=== PATIENT | male | born 1955 | race Caucasian/White ===

== ENCOUNTER 2016-11-16 05:54 | Day surgery (SDC) | payer OTHER ==
--- NOTE | 2016-11-12 15:24 | RAD ---
EXAM DESCRIPTION: XR CHEST 2 VIEWS CLINICAL HISTORY: Pre-op abdominal surgery COMPARISON: None Available. TECHNIQUE: PA/lateral FINDINGS: There is no cardiac or pulmonary abnormality. The lungs are clear. There is no effusion. IMPRESSION: No acute findings on today's study. Electronically signed by: Roc Humphries MD 11/12/2016 15:22
[2016-11-16] MEDS ORDERED: ceFAZolin SODIUM 1 GM VIAL ONE (06:42)
[2016-11-16] MEDS ORDERED: SODIUM CHL 0.9% 100ML MINI-BAG 100 ML IVPB ONE (06:43)
[2016-11-16] MEDS ORDERED: HEPARIN SODIUM 100 U/ML 5 ML SYG IV ONE (07:57)
[2016-11-16] MEDS ORDERED: SODIUM CHLORIDE 0.9% 50 ML VIAL ONE (07:57)
[2016-11-16] MEDS ORDERED: LIDOCAINE 1% 50 ML VIAL INJ ONE (07:57)
[2016-11-16] MEDS ORDERED: SODIUM BICARBONATE VIAL 50 MEQ/50 ML VIAL ONE (07:57)
[2016-11-16] MEDS ORDERED: MIDAZOLAM INJ 5 MG/5 ML VIAL ONE (09:00)
[2016-11-16] MEDS ORDERED: fentaNYL CITRATE INJ 50 MCG/ML AMP ONE (09:00)
--- NOTE | 2016-11-16 10:42 | RAD ---
EXAM DESCRIPTION: XR CHEST 1 VIEW CLINICAL HISTORY: 61 y/o ,M, port placement COMPARISON: November 12 IMPRESSION: Mild cardiomegaly without failure. New infusion port on the right with catheter tip in the lower SVC. No pneumothorax or large effusion. No complicating process noted. Electronically signed by: Alexandre Joseph MD 11/16/2016 10:40
[2016-11-16 11:11] VITALS: BP 116/80; TEMP 97.4; O2SAT 93
== END 2016-11-16 11:00 | disposition home or self-care (01) ==
LOC: EDBD → AMB 05:54 → MERGE 05:54 → AMB 11:00
PROVIDERS: ATTEND Surgery
DX: C10.9 Malignant neoplasm of oropharynx, unspecified (principal); E11.9 Type 2 diabetes mellitus without complications; R00.1 Bradycardia, unspecified; R94.31 Abnormal electrocardiogram [ECG] [EKG]; Z79.899 Other long term (current) drug therapy
CPT/HCPCS: 00532; 36416; 36561; 71010; 71020; 76000; 80048; 81001; 82948; 85025; 93005; A4216; C1788; J0690; J1642; J2250; J3010; J7050

== ENCOUNTER → 2017-12-29 | Outpatient (CLI) | payer BC | LOC: GMAB 11:19 | PROVIDERS: ATTEND Family Medicine | DX: Z00.00 Encounter for general adult medical examination without abnormal findings (principal) ==

== ENCOUNTER → 2018-12-28 | Outpatient (CLI) | payer BC | LOC: GMAE 10:49 | PROVIDERS: ATTEND Family Medicine | DX: Z00.00 Encounter for general adult medical examination without abnormal findings (principal) ==

== ENCOUNTER 2019-12-24 17:41 | Observation (INO) | payer BC ==
--- NOTE | 2019-12-24 18:20 | RAD ---
EXAM DESCRIPTION: Chest,1 View CLINICAL HISTORY: 64 years Male sob COMPARISON: 12/20/2019 FINDINGS: The cardiomediastinal silhouette appears unremarkable. No consolidating infiltrates or pleural effusions. No pneumothorax. Atelectasis in the lung bases IMPRESSION: No acute abnormality is identified. Electronically signed by: Shari Teixeira MD 12/24/2019 6:18 PM CDT
[2019-12-24] MEDS ORDERED: ASPIRIN TABLET 325 MG TAB PO ONE (19:02)
--- NOTE | 2019-12-24 21:01 | ED.PDOC ---
History of Present Illness - General Chief Complaint: Respiratory Problem Stated Complaint: SOB and hoarseness Time Seen by Provider: 12/24/19 17:59 - History of Present Illness Initial Comments: c/o having sob and desaturation at home , gave breathing treatment no improvement , currently on Augmentin for pneumonia diagnosed 1 week back ,no chest pain or wheezes or fever or chills Allergies/Adverse Reactions: Allergies NO KNOWN ALLERGY Allergy (Verified 12/24/19 18:18) Home Medications: Ambulatory Orders Acetamin W/Cod #3 Tab [Tylenol w/CODEINE #3] 1 ea PO Q4-6H PRN #20 tab 12/17/14 Amoxicillin & Pot Clavulanate [Augmentin Tab] 875 mg PO BID #20 tab 12/17/14 Ondansetron HCl [Zofran] 8 mg PO Q4HR PRN 12/24/19 Albuterol Sulfate Nebs [Proventil Nebs] 2.5 mg INH Q4HR PRN #1 inh 12/25/19 Lisinopril [Prinivil] 10 mg PO DAILY #30 tab 12/25/19 Review of Systems - Review of Systems Constitutional: States: no symptoms reported EENTM: States: no symptoms reported Cardiology: States: no symptoms reported Gastrointestinal/Abdominal: States: no symptoms reported Genitourinary: States: no symptoms reported Musculoskeletal: States: no symptoms reported Skin: States: no symptoms reported Neurological: States: no symptoms reported Endocrine: States: no symptoms reported Hematologic/Lymphatic: States: no symptoms reported Past Medical History (General) - Patient Medical History Hx Seizures: No Hx Stroke: No Hx Dementia: No Hx Asthma: No Hx of COPD: No Hx Cardiac Disorders: No Hx Congestive Heart Failure: No Hx Pacemaker: No Hx Hypertension: No Hx Thyroid Disease: No Hx Diabetes: No Hx Gastroesophageal Reflux: No Hx Renal Disease: No Hx Cancer: Yes - tongue and adnoids Hx of HIV: No Hx Hepatitis C: No Hx MRSA: No - Vaccination History Hx Tetanus, Diphtheria Vaccination: - unknown Hx Influenza Vaccination: No Hx Pneumococcal Vaccination: No - Social History Hx Tobacco Use: No Hx Alcohol Use: No Hx Substance Use: No Hx Substance Use Treatment: No Hx Depression: No - Female History Patient is a Female of Child Bearing Age (10 -59 yrs old): No Patient : No Family Medical History - Family History Mother Family History: No Known Physical Exam - Physical Exam General Appearance: Alert, Comfortable Eyes, Ears, Nose, Throat Exam: PERRL/EOMI, normal ENT inspection Neck: non-tender, full range of motion, supple, normal inspection Respiratory: chest non-tender, lungs clear, normal breath sounds, no respiratory distress, no accessory muscle use Cardiovascular/Chest: regular rate, rhythm Extremity: normal range of motion, non-tender, normal inspection, no pedal edema Neurologic: no motor/sensory deficits, alert, normal mood/affect, oriented x 3 Progress - Progress Progress: 12/24/19 21:01 12/24/19 19:45 EKG STAT Laboratory Results WBC 8.2 K/mm3 (4.8-10.8) 12/24/19 18:20 RBC 4.17 M/mm3 (4.70-6.10) L 12/24/19 18:20 Hgb 12.8 gm/dL (14.0-18.0) L 12/24/19 18:20 Hct 37.6 % (42.0-52.0) L 12/24/19 18:20 MCV 90.3 fl (80.0-94.0) 12/24/19 18:20 MCH 30.7 pg (27.0-31.0) 12/24/19 18:20 MCHC 33.9 g/dL (33.0-37.0) 12/24/19 18:20 RDW 14.4 % (11.5-14.5) 12/24/19 18:20 Plt Count 225 K/mm3 (130-400) 12/24/19 18:20 MPV 7.6 fl (7.40-10.4) 12/24/19 18:20 Absolute Neuts (auto) 7.50 K/uL (1.8-6.8) H 12/24/19 18:20 Absolute Lymphs (auto) 0.30 K/uL (1.0-3.4) L 12/24/19 18:20 Absolute Monos (auto) 0.50 K/uL (0.2-0.8) 12/24/19 18:20 Absolute Eos (auto) 0.00 K/uL (0.0-0.4) 12/24/19 18:20 Absolute Basos (auto) 0.00 K/uL (0.0-0.1) 12/24/19 18:20 Neutrophils % 90.8 % (42.0-78.0) H 12/24/19 18:20 Lymphocytes % 3.1 % (20.0-50.0) L 12/24/19 18:20 Monocytes % 5.7 % (2.0-9.0) 12/24/19 18:20 Eosinophils % 0.1 % (1.0-5.0) L 12/24/19 18:20 Basophils % 0.3 % (0.0-2.0) 12/24/19 18:20 D-Dimer, Quantitative 263 ng/ml (131-400) 12/24/19 18:05 Sodium 136 mmol/L (135-145) 12/24/19 18:20 Potassium 4.1 mmol/L (3.6-5.0) 12/24/19 18:20 Chloride 96 mmol/L (101-111) L 12/24/19 18:20 Carbon Dioxide 31 mmol/L (21-31) 12/24/19 18:20 Anion Gap 13.1 (12-18) 12/24/19 18:20 BUN 22 mg/dL (7-18) H 12/24/19 18:20 Creatinine 1.17 mg/dL (0.6-1.3) 12/24/19 18:20 BUN/Creatinine Ratio 18.8 (10-20) 12/24/19 18:20 Random Glucose 128 mg/dL (70-105) H 12/24/19 18:20 Serum Osmolality 276.9 mOsm/L (275-295) 12/24/19 18:20 Calcium 8.9 mg/dL (8.4-10.2) 12/24/19 18:20 Total Bilirubin 0.6 mg/dL (0.2-1.0) 12/24/19 18:20 AST 27 IU/L (10-42) 12/24/19 18:20 ALT 24 IU/L (10-60) 12/24/19 18:20 Alkaline Phosphatase 52 IU/L (42-121) 12/24/19 18:20 Troponin I 0.06 ng/mL (0.01-0.05) H 12/24/19 20:15 Serum Total Protein 7.2 gm/dL (6.4-8.2) 12/24/19 18:20 Albumin 3.7 g/dl (3.2-5.5) 12/24/19 18:20 Globulin 3.5 gm/dL (2.3-3.5) 12/24/19 18:20 Albumin/Globulin Ratio 1.1 (1.1-1.9) 12/24/19 18:20 - Results/Orders Results/Orders: Case d/w Hospitalist Liv Lozano : agreed to admit the pt Departure - Departure Clinical Impression: SOB (shortness of breath), Elevated troponin Time of Disposition: 21:04 Disposition: Admit Patient Condition: Good Home Medications: Ambulatory Orders Acetamin W/Cod #3 Tab [Tylenol w/CODEINE #3] 1 ea PO Q4-6H PRN #20 tab 12/17/14 Amoxicillin & Pot Clavulanate [Augmentin Tab] 875 mg PO BID #20 tab 12/17/14 Ondansetron HCl [Zofran] 8 mg PO Q4HR PRN 12/24/19 Albuterol Sulfate Nebs [Proventil Nebs] 2.5 mg INH Q4HR PRN #1 inh 12/25/19 Lisinopril [Prinivil] 10 mg PO DAILY #30 tab 12/25/19
[2019-12-24] MEDS ORDERED: methylPREDNISolone SODIUM SUC 125 MG/2 ML VIAL IV ONE (21:02)
[2019-12-24] MEDS ORDERED: IPRATROPIUM/ALBUTEROL 3 ML VIAL NEB ONE (21:02)
[2019-12-24] MEDS ORDERED: SODIUM CHLORIDE 0.9% (FLUSH) 10 ML SYG IV PRN (22:24)
[2019-12-24] MEDS ORDERED: ALBUTEROL SULFATE 2.5 MG/3 ML VIAL NEB PRN (22:26)
[2019-12-24] MEDS ORDERED: IV SET AND CAP CHANGE INJ INJ SCH (22:30)
[2019-12-24] MEDS ORDERED: ACETAMINOPHEN W/COD #3 TAB 1 EA TAB PO PRN (22:30)
[2019-12-24] MEDS: AMOXICILLIN & POT CLAVULANATE 875 MG TAB PO SCH (22:39)
[2019-12-24] MEDS ORDERED: ONDANSETRON 4 MG TAB PO PRN (22:41)
[2019-12-25] MEDS ORDERED: ONDANSETRON HCL 8 MG PO SCH
--- NOTE | 2019-12-25 07:43 | RAD ---
EXAM DESCRIPTION: XR CHEST 2 VIEWS CLINICAL HISTORY: Pneumonia COMPARISON: 12/24/2019 TECHNIQUE: PA/lateral FINDINGS: Mild cardiomegaly. Mediastinal contours are normal. Volume loss right lower lobe with perihilar/lower lobe atelectasis/infiltrate. Similar appearance on previous study. No definite left infiltrate. No large pleural effusion. No pneumothorax IMPRESSION: Similar appearance of the right perihilar/basilar atelectasis/infiltrate Electronically signed by: Vladimir Ward MD 12/25/2019 7:41 AM CDT
[2019-12-25] MEDS ORDERED: AMOXICILLIN TRIHYDRATE 875 MG TAB PO ONE (07:46)
[2019-12-25] MEDS: AMOXICILLIN & POT CLAVULANATE 875 MG TAB PO SCH (08:07)
[2019-12-25] MEDS: IPRATROPIUM/ALBUTEROL 3 ML VIAL INH SCH ×2 (08:44→12:00)
[2019-12-25] MEDS ORDERED: SODIUM CHLORIDE 0.65% NASAL SPRAY 45 ML BTTL BNAS PRN (10:34)
[2019-12-25] MEDS: LISINOPRIL 10 MG TAB PO SCH ×2 (11:34→11:38)
[2019-12-25] MEDS ORDERED: LISINOPRIL 10 MG TAB PO SCH (12:00)
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
[2019-12-25 14:07] VITALS: BP 139/77; TEMP 98.1; O2SAT 96
== END 2019-12-25 13:55 | disposition home or self-care (01) ==
LOC: ER 17:41 → MS 21:23
PROVIDERS: ADMIT Nurse Practitioner Acute Care; ATTEND Nurse Practitioner Family
DX: J18.1 Lobar pneumonia, unspecified organism (principal); R74.8 Abnormal levels of other serum enzymes; I11.9 Hypertensive heart disease without heart failure; E78.5 Hyperlipidemia, unspecified; R00.0 Tachycardia, unspecified; Z79.899 Other long term (current) drug therapy; Z85.818 Personal history of malignant neoplasm of other sites of lip, oral cavity, and pharynx; Z92.21 Personal history of antineoplastic chemotherapy; Z92.3 Personal history of irradiation; Z82.49 Family history of ischemic heart disease and other diseases of the circulatory system; Z82.3 Family history of stroke; Z80.8 Family history of malignant neoplasm of other organs or systems
CPT/HCPCS: 96374; J2930; J7620; 85379 ×2; 80048; 80053; 36415 ×4; 85025 ×2; 84484 ×3; 83880; 83605; 71045; 71046; 94760; 94640; 94762; 99285; 93005; G0378

== ENCOUNTER → 2020-07-08 | Outpatient (CLI) | payer BC | LOC: GMAE 14:04 | PROVIDERS: ATTEND Family Medicine | DX: Z00.00 Encounter for general adult medical examination without abnormal findings (principal) ==

== ENCOUNTER 2020-07-28 11:36 | Emergency (ER) | payer BC, MEDICARE ==
[2020-07-28] MEDS ORDERED: cefTRIAXone SODIUM 1 GM in SODIUM CHL 0.9% 50ML MIN-BAG+ 50 ML IVPB ONE (12:01)
[2020-07-28] MEDS ORDERED: DEXAMETHASONE INJ 10 MG/ML VIAL IV ONE (12:01)
[2020-07-28] MEDS ORDERED: AZITHROMYCIN IV 500 MG in SODIUM CHLORIDE 0.9% 250ML 250 ML IVPB ONE (12:01)
--- NOTE | 2020-07-28 12:47 | CT ---
EXAM DESCRIPTION: Sinuses RadLex: CT SINUSES WITHOUT IV CONTRAST CLINICAL HISTORY: 65 years Male hypoxia, coronoavirus COMPARISON: None TECHNIQUE: Axial images were taken through the sinuses at 2.5 mm intervals with sagittal and coronal reconstructions performed. This exam was performed according to our departmental dose-optimization program, which includes automated exposure control, adjustment of the mA and/or kV according to patient size and/or use of iterative reconstruction technique. FINDINGS: There is some mild mucosal thickening noted within the left maxillary sinus measuring approximately 2.3 mm in thickness. The right maxillary sinus is clear. Both the left and right ostiomeatal complexes are widely patent. The ethmoid air cells, frontal sinuses and sphenoid sinuses are clear without disease. The The osseous structures all appear intact. The soft tissues appear unremarkable. There is some minimal opacification of the left mastoid air cells may be secondary to a early mastoiditis. The right mastoid air cells are clear. IMPRESSION: 1. Minimal mucosal thickening seen within the left maxillary sinus may be secondary to early sinusitis. 2. Fluid seen within the left mastoid air cells may be secondary to mastoiditis. Electronically signed by: Khoi Duong MD 07/28/2020 12:46 PM CDT
--- NOTE | 2020-07-28 12:53 | CT ---
Sex: Male. : 1955. TECHNIQUE: Axial scans of the chest was performed without intravenous contrast including computer reformations. Total Dose Length Product: 821. This exam was performed according to our departmental dose-optimization program, which includes automated exposure control, adjustment of the mA and/or kV according to patient size and/or use of iterative reconstruction technique. Comparison studies: CT scan September 03, 2016. Chest x-ray December 25, 2019. Clinical history: hypoxia, coronavirus. Findings: Cardiac: Heart size: The heart size is within normal limits. Pericardial effusion: None. Vasculature: Aorta: Atherosclerotic calcification. Pulmonary arteries: No dilatation. Lungs: -There is a new pleural-based mass in the posterior medial right apex that measures 12 mm on series 2 image 10. The margins are lobular and somewhat stellate. -There is subtle groundglass infiltrate in the central right apex series 601 image 57. -Right middle lobe is clear. -There is dependent linear atelectasis in the right lower lobe. -Left upper lobe is clear. -There is minimal dependent linear atelectasis in the posterior left lower lobe. Pleura: No effusion. Mediastinum: Right hilar mass extends into the right anterior superior mediastinum in front of the right mainstem bronchus. Karon: There is a mass in the right hilum that is not clearly distinguished from the pulmonary artery without intravenous contrast. Measures approximately 4 cm on series 2 image 19 and series 602 image 81. There is contiguous extension into the anterior superior mediastinum on the right side. There appears to be encasement of the right upper lobe bronchus appears to be occluded. Musculoskeletal: Unremarkable. Upper abdomen: Hepatic calcified granuloma. Indeterminate hypoattenuating density in the dome of the right lobe on series 2 image 46 measures 4.5 mm with a second superiorly adjacent subcentimeter lesion on image 38. IMPRESSION: 1. 12 mm right upper lobe mass consistent with malignant neoplasm. 2. Right hilar/mediastinal adenopathy-mass. 3. Encasement and occlusion of the right upper lobe bronchus with small groundglass infiltrate probably due to atelectasis in the right central apex upper lobe. 4. Mild dependent basilar atelectasis in the lower lobes. 5. Small indeterminate hypoattenuating hepatic densities. Electronically signed by: Reji Forte MD 07/28/2020 12:52 PM CDT
--- NOTE | 2020-07-28 13:21 | ED.PDOC ---
History of Present Illness - General Chief Complaint: Respiratory Problem Stated Complaint: Cough, congestion Time Seen by Provider: 07/28/20 11:58 Source: patient Exam Limitations: no limitations - History of Present Illness Initial Comments: The patient is a 65-year-old male presents emergency room secondary to cough and shortness of breath. He is also had some mild body aches. Patient also reports kind of a chronic sinusitis giving him issues for the last month. 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 Oxygen saturations dropped down to 86% while at rest talking to me. Breath sounds are coarse. Mild decreased breath sounds to the right upper lobe. The patient reports a a chronic sinus tachycardia however. Severity: moderate Improving Factors: nothing Worsening Factors: nothing Associated Symptoms: cough, malaise, shortness of breath Allergies/Adverse Reactions: Allergies NO KNOWN ALLERGY Allergy (Verified 12/24/19 18:18) Home Medications: Ambulatory Orders Acetamin W/Cod #3 Tab [Tylenol w/CODEINE #3] 1 ea PO Q4-6H PRN #20 tab 12/17/14 Amoxicillin & Pot Clavulanate [Augmentin Tab] 875 mg PO BID #20 tab 12/17/14 Ondansetron HCl [Zofran] 8 mg PO Q4HR PRN 12/24/19 Albuterol Sulfate Nebs [Proventil Nebs] 2.5 mg INH Q4HR PRN #1 inh 12/25/19 Lisinopril [Prinivil] 10 mg PO DAILY #30 tab 12/25/19 Review of Systems - Review of Systems Constitutional: States: malaise EENTM: States: nose congestion Respiratory: States: cough, short of breath Cardiology: States: no symptoms reported Gastrointestinal/Abdominal: States: no symptoms reported Genitourinary: States: no symptoms reported Musculoskeletal: States: no symptoms reported Skin: States: no symptoms reported Neurological: States: no symptoms reported Endocrine: States: no symptoms reported All other Systems: No Change from Baseline Past Medical History (General) - Patient Medical History Hx Seizures: No Hx Stroke: No Hx Dementia: No Hx Asthma: No Hx of COPD: No Hx Cardiac Disorders: No Hx Congestive Heart Failure: No Hx Pacemaker: No Hx Hypertension: No Hx Thyroid Disease: No Hx Diabetes: No Hx Gastroesophageal Reflux: No Hx Renal Disease: No Hx Cancer: Yes - tongue and adnoids Hx of HIV: No Hx Hepatitis C: No Hx MRSA: No - Vaccination History Hx Tetanus, Diphtheria Vaccination: No - unknown Hx Influenza Vaccination: No Hx Pneumococcal Vaccination: No - Social History Hx Tobacco Use: No Hx Alcohol Use: No Hx Substance Use: No Hx Substance Use Treatment: No Hx Depression: No Hx Physical Abuse: No Hx Emotional Abuse: No - Female History Patient : No Family Medical History - Family History Mother Family History: No Known Living Status: Still Living Physical Exam - Physical Exam General Appearance: Alert, Comfortable, Other - Moderate increased work of breathing Eye Exam: bilateral normal Ears, Nose, Throat: hearing grossly normal, normal pharynx, nasal congestion Neck: non-tender, supple Respiratory: other - Decreased breath sounds to the right upper lung field. Coarse rhonchi scattered throughout elsewhere. Possible fine background rales. 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 Progress - Progress Progress: 07/28/20 13:25 The patient is a 65-year-old male presented emergency room secondary to increased cough and some shortness of breath over the last couple of days. 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 The patient is saturating well with 2 L nasal cannula. The patient has been started on Rocephin, azithromycin, dexamethasone and remdesivir. Blood cultures have been done. 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 The patient does have a tachycardia but apparently does always have a mild sinus tachycardia according to him. This will need to be followed. Transferring to [facility] for specialty evaluation. Acceptance is greatly appreciated. Results of official coronavirus test will be forwarded when returned. yariel omer [phone] - Results/Orders Results/Orders: Laboratory Tests 07/28/20 07/28/20 07/28/20 12:21 12:21 12:21 WBC 5.5 RBC 5.35 Hgb 16.2 Hct 48.2 MCV 90.1 MCH 30.4 MCHC 33.7 RDW 14.5 Plt Count 273 MPV 7.0 L Absolute Neuts (auto) 4.70 Absolute Lymphs (auto) 0.50 L Absolute Monos (auto) 0.40 Absolute Eos (auto) 0.00 Absolute Basos (auto) 0.00 Neutrophils % 84.1 H Lymphocytes % 8.5 L Monocytes % 6.7 Eosinophils % 0.4 L Basophils % 0.3 PT 10.9 INR 1.10 PTT (SP) 27.4 Fibrinogen 617 H D-Dimer, Quantitative < 131.0 L Sodium 137 Potassium 4.5 Chloride 92 L Carbon Dioxide 32 H Anion Gap 17.5 BUN 20 H Creatinine 1.06 BUN/Creatinine Ratio 18.9 Random Glucose 101 Serum Osmolality 276.6 Calcium 9.1 Magnesium 2.1 Total Bilirubin 0.8 AST 23 ALT 23 Alkaline Phosphatase 77 Creatine Kinase 164 CK-MB (CK-2) 5.2 H* CK-MB (CK-2) % Not Reportable Troponin I < 0.02 C-Reactive Protein 4.5 H B-Natriuretic Peptide < 15.0 Serum Total Protein 7.7 Albumin 4.3 Globulin 3.4 Albumin/Globulin Ratio 1.3 CT scan of the chest without contrast shows a 4 cm mediastinal mass wrapping around the upper bronchi to the right upper lobe. Possible occlusion. There is also a small pleural-based mass to the right upper lobe. Small infiltrate in the area as well. Ill-defined densities in the liver. See report for full details. Departure - Departure Clinical Impression: Pneumonia due to COVID-19 virus, Mediastinal mass Disposition: Transfer to Hospital Condition: Poor Departure Forms: ED Discharge - Pt. Copy, Patient Portal Self Enrollment Referrals: CHRIS ARCHULETA MD [Primary Care Provider] - 1-2 Weeks Home Medications: Ambulatory Orders Acetamin W/Cod #3 Tab [Tylenol w/CODEINE #3] 1 ea PO Q4-6H PRN #20 tab 12/17/14 Amoxicillin & Pot Clavulanate [Augmentin Tab] 875 mg PO BID #20 tab 12/17/14 Ondansetron HCl [Zofran] 8 mg PO Q4HR PRN 12/24/19 Albuterol Sulfate Nebs [Proventil Nebs] 2.5 mg INH Q4HR PRN #1 inh 12/25/19 Lisinopril [Prinivil] 10 mg PO DAILY #30 tab 12/25/19 Transfer to Outside Facility - Transfer Information Decision to Transfer Date: 07/28/20 Decision to Transfer Time: 13:29 Reason for Transfer: required specialist not available Accepting Provider:: dr han Accepting Facility: [facility]
[2020-07-28 13:27] VITALS: BP 127/90
[2020-07-28 14:55] VITALS: TEMP 99.3; O2SAT 94
[2020-07-29] MEDS ORDERED: REMDESIVIR 200 MG in SODIUM CHLORIDE 0.9% 250ML 250 ML IVPB SCH (09:00)
== END 2020-07-28 14:12 | disposition short-term general hospital (02) ==
LOC: ER 11:36
DX: U07.1 COVID-19 (principal); J12.89 Other viral pneumonia; R22.2 Localized swelling, mass and lump, trunk; R06.02 Shortness of breath; R00.0 Tachycardia, unspecified; Z85.89 Personal history of malignant neoplasm of other organs and systems; Z79.899 Other long term (current) drug therapy
CPT/HCPCS: 36415; 70486; 71250; 80053; 81001; 82550; 82553; 83735; 83880; 84484; 85025; 85379; 85384; 85610; 85730; 86140; 87040; 93005; J0456; J0696; J1100; J7050; U0002